=== PATIENT | male | born 1945 | race Caucasian/White ===

== ENCOUNTER → 2024-11-07 11:02 | Outpatient (REF) | payer MEDICARE, OTHER, SELFPAY | LOC: RCS 11:02 | PROVIDERS: ATTENDING PHYSICIAN Internal Medicine Cardiovascular Disease; FAMILY PHYSICIAN Nurse Practitioner Adult Health | DX: R00.2 Palpitations (principal); R42 Dizziness and giddiness; I34.0 Nonrheumatic mitral (valve) insufficiency | CPT/HCPCS: 93306 ==

== ENCOUNTER → 2024-11-19 11:37 | Outpatient (REF) | payer MEDICARE, OTHER, SELFPAY | LOC: RCS 11:37 | PROVIDERS: ATTENDING PHYSICIAN Internal Medicine Cardiovascular Disease; FAMILY PHYSICIAN Nurse Practitioner Adult Health | DX: R00.2 Palpitations (principal); I49.8 Other specified cardiac arrhythmias; R06.09 Other forms of dyspnea | CPT/HCPCS: 78452; 93017; A9500 ==